=== PATIENT | male | born 1995 | race Caucasian/White ===

== ENCOUNTER → 2019-04-07 | Outpatient (CLI) | payer OTHER ==
[~2019-04-07] MED LIST: MEDROL 4MG DOSPA4 MG PO; SYNTHROID 0.10.15 MG PO; TRIAMCINOLONE A15 G3 TP; ZYRTEC ALLERGY10 MG PO
== END ==
LOC: COL.RAD 13:39
DX: H50.00 Unspecified esotropia (principal); H53.2 Diplopia
CPT/HCPCS: A9585